=== PATIENT | male | born 1970 ===

== ENCOUNTER 2023-02-03 12:48 | Emergency (ER) | payer BC ==
[2023-02-03] MEDS ORDERED: Sodium Chloride 0.9% 10 ML Syringe FLUSH PRN (13:42)
[2023-02-03 14:13] LABS: BASOPHILS ABSOLUTE AUTO 0.03 K/mm3 (0.01-0.08); BASOPHILS PERCENT AUTO 0.4 % (0.1-1.2); EOSINOPHILS ABSOLUTE AUTO 0.15 K/mm3 (0.04-0.54); HEMATOCRIT 39.5 % (40.1-51.0); HEMOGLOBIN 12.8 gm/dl (13.7-17.5); IMMATURE GRAN ABSOLUTE AUTO 0.01 K/mm3 (0.00-0.10); IMMATURE GRAN PERCENT AUTO 0.1 % (<=1.0); LYMPHOCYTES ABSOLUTE AUTO 2.36 K/mm3 (1.32-3.57); LYMPHOCYTES PERCENT AUTO 31.3 % (21.8-53.1); MEAN CORPUSCULAR HEMOGLOBIN 25.2 pg (25.7-32.2); MEAN CORPUSCULAR HGB CONC 32.4 g/dl (32.2-35.5); MEAN CORPUSCULAR VOLUME 77.8 fl (79.0-92.2); MEAN PLATELET VOLUME 10.4 fl (9.4-12.3); MONOCYTES ABSOLUTE AUTO 0.58 K/mm3 (0.30-0.82); MONOCYTES PERCENT AUTO 7.7 % (5.3-12.2); NEUTROPHILS PERCENT AUTO 58.5 % (34.0-67.9); PLATELET COUNT,PLT 181 K/mm3 (163-337); RED BLOOD CELL COUNT 5.08 M/mm3 (4.63-6.08); WHITE BLOOD CELL COUNT,WBC 7.53 K/mm3 (4.23-9.07)
[2023-02-03 14:31] LABS: A/G RATIO 1.2 (1-2); ALBUMIN 3.9 g/dl (3.4-5.0); ANION GAP 12.7 (5-15); BILIRUBIN TOTAL 0.4 mg/dL (0.2-1.0); BUN/CREATININE RATIO 18.9 (14-18); CALCIUM 9.1 mg/dL (8.5-10.1); CREATININE 0.9 mg/dL (0.7-1.3); EST CRCL DRUG DOSING (CG) 96.01 mL/min; POTASSIUM,K 3.7 mEq/L (3.5-5.1); PROTEIN TOTAL,TP 7.3 g/dl (6.4-8.2)
== END 2023-02-03 16:30 | disposition home or self-care (01) ==
LOC: JD.ED 12:48
DX: R00.1 Bradycardia, unspecified (principal); Z88.0 Allergy status to penicillin; Z88.2 Allergy status to sulfonamides; Z88.8 Allergy status to other drugs, medicaments and biological substances
CPT/HCPCS: 36415; 71045; 71045-26; 80053; 84484; 85025; 93225; 99284

== ENCOUNTER 2023-07-27 20:10 | Emergency (ER) | payer BC | END 2023-07-27 23:21 | disposition home or self-care (01) | LOC: JD.ED 20:10 | DX: M18.11 Unilateral primary osteoarthritis of first carpometacarpal joint, right hand (principal); Z88.0 Allergy status to penicillin; Z88.2 Allergy status to sulfonamides; Z88.8 Allergy status to other drugs, medicaments and biological substances | CPT/HCPCS: 29125; 73130-26-RT; 73130-RT; 73200-26-RT; 73200-RT; 99283; 99284 ==